=== PATIENT | female | born 1945 | race Caucasian/White ===

== ENCOUNTER 2019-03-25 05:53 | Inpatient (IN) | payer OTHER ==
[~2019-03-25] VITALS: Ht 172.7 cm; Wt 79.0 kg
[~2019-03-25 05:53] MED LIST: ACET500 PO; AMLO5 PO; ASCO500 PO; ATOR40TA PO; Aspir-Trin325 MG PO; Atenolol100 MG PO; CALCIUM PO; CENTRUM COMPLE1 EACH PO; CHOL10002 PO; COQ1050 MG PO; Dyazide 37.5-21 EACH PO; POTCHL10ER PO; Prozac20 MG PO
--- NOTE | 2019-03-25 06:34 | NUR ---
History, Chart, Medications and Allergies reviewed before start of procedure. Patient confirms NPO status and agrees with scheduled surgery. Lungs clear T/O to Auscultation.
--- NOTE | 2019-03-25 07:14 | NUR ---
NOZIN NASAL BUFFERER X3 USED TO NARES BILAT. KNEE HIGH ELSA HOSE AND CALF PAS TO BLE.
--- NOTE | 2019-03-25 18:08 | NUR ---
SHIFT SUMMARY PT HAS DONE VERY WELL POST OP. PAIN 3/10 AT MOST FOR MY SHIFT. NO DRAINAGE OR SHADOWING NOTED. WORKED WITH THERAPY, VOIDING, TOLERATING DIET.
--- NOTE | 2019-03-26 04:21 | NUR ---
SHIFT SUMMARY PT A&O X4 T/O SHIFT. POD#0 R INDU; DRESSING TO R HIP CDI T/O SHIFT. PAIN MANAGED PER EMAR. CRYOTHERAPY TO R HIP T/O SHIFT. ON RA; PT DENIED NAUSEA, SOB AND CP. NO ACUTE CHANGES. UP WITH FWW AND SBA TO TOILET. SCD'S AND KHT TO BLE'S. CALL LIGHT IN REACH; PT DEMONSTRATES USE. WCTM UNTIL REPORT TO DAY SHIFT RN.
[2019-03-26 05:00] LABS: BASOPHILS ABSOLUTE AUTO 0.01 K/mm3 (0.00-0.23); BASOPHILS PERCENT AUTO 0 % (0-2); EOSINOPHILS PERCENT AUTO 0 % (0-6); Hematocrit 34.2 % (33.0-51.0); Hemoglobin 11.1 g/dL (11.5-16.0); IMMATURE GRAN ABSOLUTE AUTO 0.05 K/mm3 (0.00-0.10); IMMATURE GRAN PERCENT AUTO 0 % (0-1); LYMPHOCYTES ABSOLUTE AUTO 0.88 K/mm3 (0.84-5.20); LYMPHOCYTES PERCENT AUTO 6 % (21-46); MONOCYTES PERCENT AUTO 9 % (4-13); Mean Corpuscular HGB 29.5 pg (26.0-34.0); Mean Corpuscular HGB Conc 32.5 g/dL (31.5-36.5); Mean Corpuscular Volume 91 fL (80-100); Mean Platelet Volume 10.5 fL (9.1-12.4); NEUTROPHILS ABSOLUTE AUTO 12.27 K/mm3 (1.96-9.15); NEUTROPHILS PERCENT AUTO 85 % (41-73); Platelet Count 287 K/mm3 (150-400); RDW Coefficient Variation 12.4 % (11.7-14.2); Red Blood Cell Count 3.76 M/mm3 (3.80-5.20); White Blood Cell Count 14.51 K/mm3 (4.00-11.30)
[2019-03-26 05:20] LABS: Bun/Creatinine Ratio 17.1 (12.0-20.0); Calcium, Blood 8.3 mg/dL (8.5-10.1); Creatinine, Blood 0.99 mg/dL (0.40-1.00); Magnesium, Blood 1.9 mg/dL (1.6-2.4); Potassium, Blood 3.9 mmol/L (3.5-5.5)
[2019-03-26] MEDS ORDERED: XARELTO10 MG PO (09:28)
[2019-03-26] MEDS ORDERED: OXYC5 PO (09:28)
[2019-03-26] MEDS ORDERED: ACET500 PO (09:28)
--- NOTE | 2019-03-27 09:49 | NUR ---
03/27/19 0949 Jessica Cox VERIFICATIONS: EDIT CHART.
== END 2019-03-26 09:48 | disposition home or self-care (01) | DRG 470 ==
LOC: SURS 05:53 → PRE IP 07:30 → SURS 11:23
PROVIDERS: ADMIT Orthopaedic Surgery
PROC: 0SR904A Replacement of Right Hip Joint with Ceramic on Polyethylene Synthetic Substitute, Uncemented, Open Approach (ICD-10-PCS; principal; 2019-03-25 07:30)
DX: M16.11 Unilateral primary osteoarthritis, right hip (principal); I12.9 Hypertensive chronic kidney disease with stage 1 through stage 4 chronic kidney disease, or unspecified chronic kidney disease; N18.3 Chronic kidney disease, stage 3 (moderate); E78.5 Hyperlipidemia, unspecified; Z88.0 Allergy status to penicillin
CPT/HCPCS: 36415; 72170; 80048; 83735; 85025; 88300; 97110; 97116; 97162; 97530; C1776; J0171; J0690; J0735; J1100; J1885; J2250; J2405; J2704; J2795; J3010; J7120

== ENCOUNTER → 2020-03-08 | Outpatient (CLI) | payer OTHER ==
[~2020-03-08] MED LIST changes: +AMLODIPINE BES2.5 MG PO; +ASPI325EC PO; +ATEN100 PO; +DYAZIDE 37.5-21 EACH PO; +Daily Multiple1 EACH PO; +OXYC5 PO; +Oyster Shell C500 MG PO; +Vitamin D2000 UNIT PO; +XARELTO10 MG PO
[2020-03-08 10:25] LABS: BASOPHILS ABSOLUTE AUTO 0.03 K/mm3 (0.00-0.23); BASOPHILS PERCENT AUTO 0 % (0-2); EOSINOPHILS PERCENT AUTO 2 % (0-6); Hematocrit 40.1 % (33.0-51.0); Hemoglobin 13.4 g/dL (11.5-16.0); IMMATURE GRAN ABSOLUTE AUTO 0.03 K/mm3 (0.00-0.10); IMMATURE GRAN PERCENT AUTO 0 % (0-1); LYMPHOCYTES ABSOLUTE AUTO 1.57 K/mm3 (0.84-5.20); LYMPHOCYTES PERCENT AUTO 13 % (21-46); MONOCYTES PERCENT AUTO 10 % (4-13); Mean Corpuscular HGB 29.8 pg (26.0-34.0); Mean Corpuscular HGB Conc 33.4 g/dL (31.5-36.5); Mean Corpuscular Volume 89 fL (80-100); Mean Platelet Volume 10.4 fL (9.1-12.4); NEUTROPHILS ABSOLUTE AUTO 9.15 K/mm3 (1.96-9.15); NEUTROPHILS PERCENT AUTO 75 % (41-73); Platelet Count 320 K/mm3 (150-400); RDW Coefficient Variation 12.7 % (11.7-14.2); RDW Standard Deviation 41.3 fL (35.1-46.3); Red Blood Cell Count 4.49 M/mm3 (3.80-5.20); White Blood Cell Count 12.18 K/mm3 (4.00-11.30)
[2020-03-08 10:36] LABS: Albumin, Blood 3.8 g/dL (3.4-5.0); Albumin/Globulin Ratio 0.8 (0.8-1.8); Bilirubin, Total 0.6 mg/dL (0.1-1.0); Bun/Creatinine Ratio 10.5 (12.0-20.0); Calcium, Blood 9.3 mg/dL (8.5-10.1); Creatinine, Blood 0.95 mg/dL (0.40-1.00); Globulin, Blood 4.6 g/dL (2.2-4.0); Potassium, Blood 3.9 mmol/L (3.5-5.5); Total Protein, Blood 8.4 g/dL (6.4-8.2)
== END | disposition home or self-care (01) ==
LOC: LAB EV 10:20 → LAB SHORT 10:20
PROVIDERS: Physician Assistant Surgical
DX: R10.31 Right lower quadrant pain (principal)
CPT/HCPCS: 80053; 85025

== ENCOUNTER 2022-08-06 05:31 | Emergency (ER) | payer OTHER ==
[~2022-08-06] VITALS: Ht 172.7 cm; Wt 79.4 kg
[2022-08-06] MEDS ORDERED: K-Dur10 MEQ (05:55)
[2022-08-06] MEDS ORDERED: MYRBETRIQ25 MG PO (05:55)
[2022-08-06] MEDS ORDERED: PRED20 PO (06:41)
== END 2022-08-06 06:49 | disposition home or self-care (01) ==
LOC: ER 05:31
DX: M77.8 Other enthesopathies, not elsewhere classified (principal)
CPT/HCPCS: J7512